=== PATIENT | male | born 2000 | race Caucasian/White ===

== ENCOUNTER 2021-05-04 15:18 | Emergency (ER) | payer OTHER ==
[2021-05-04 15:34] VITALS: BP 121/62
--- NOTE | 2021-05-04 15:49 | ED Physician Documentation ---
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 He is sexually active. Review of Systems Constitutional: reports: Reviewed and negative Eyes: reports: Reviewed and negative Ears: reports: Reviewed and negative Nose: reports: Reviewed and negative Throat: reports: Reviewed and negative PD PAST MEDICAL HISTORY - Present Medications Home Medications: Ambulatory Orders Medication Instructions Recorded Confirmed Acyclovir 800 mg PO 5XD #50 tablet 05/04/21 - Allergies Allergies/Adverse Reactions: Allergies Allergy/AdvReac Type Severity Reaction Status Date / Time No Known Drug Allergies Allergy Verified 05/04/21 15:35 PD ED PE NORMAL - Vitals Vital signs reviewed: Yes - General General: Alert and oriented X 3, No acute distress - Male Male : Other (There are a few grouped vesicles on the dorsum and the left side of the shaft of the penis. No adenopathy or other abnormalities. Swab for PCR for herpes was taken during exam.) - Neuro Neuro: Alert and oriented X 3, Normal speech Results - Vitals Vitals: Vital Signs - 24 hr 05/04/21 15:31 Temperature 36.9 C Heart Rate 87 Respiratory 14 Rate Blood Pressure 121/62 O2 Saturation 100 Oxygen O2 Source Room air Departure - Departure Disposition: 01 Home, Self Care Clinical Impression: Herpes simplex type 2 infection Condition: Good Record reviewed to determine appropriate education?: Yes Instructions: ED Herpes Simplex Virus Type 2 Prescriptions: Acyclovir 800 mg PO 5XD #50 tablet Comments: As discussed, your exam is most consistent with herpes simplex 2. A PCR is pending. You can get results online in a few days, go to [email or web address] and sign up for the patient portal, you should be able to view your results that way. A confirmatory result for genital herpes would be a positive result for HSV-2. Call your doctor to arrange a follow-up appointment, make the next available appointment. In the interim, return anytime if worse or if new symptoms develop.
[2021-05-08 04:46] LABS: HSV 1 DNA NOT DETECTED; HSV 2 DNA DETECTED; SOURCE PENIS
== END 2021-05-04 18:22 | disposition home or self-care (01) ==
LOC: ED 15:18
DX: B00.9 Herpesviral infection, unspecified (principal)
CPT/HCPCS: 87529; 99283

== ENCOUNTER 2022-12-27 02:10 | Outpatient (CLI) | payer OTHER | END 2022-12-27 02:11 | disposition EMS.NT | LOC: EMS 02:10 | DX: S01.21XA Laceration without foreign body of nose, initial encounter (principal); Y04.8XXA Assault by other bodily force, initial encounter; Y92.89 Other specified places as the place of occurrence of the external cause ==

== ENCOUNTER 2022-12-27 04:38 | Emergency (ER) | payer OTHER ==
[2022-12-27] MEDS ORDERED: TRANEXAMIC ACID 1,000 MG/10 ML VIAL NAS STA (04:55)
[2022-12-27] MEDS ORDERED: OXYMETAZOLINE HCL 100 SPRAYS BOTTLE NAS STA (05:04)
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
[2022-12-27 05:46] VITALS: BP 134/85
== END 2022-12-27 05:51 | disposition home or self-care (01) ==
LOC: ED 04:38
DX: S00.33XA Contusion of nose, initial encounter (principal); Y33.XXXA Other specified events, undetermined intent, initial encounter
CPT/HCPCS: 30901; 99282; A9270